=== PATIENT | male | born 2000 ===

== ENCOUNTER → 2023-08-07 | Outpatient (CLI) | LOC: M SOG 08:00 | PROVIDERS: ATTEND Physician Assistant | DX: S62.631A Displaced fracture of distal phalanx of left index finger, initial encounter for closed fracture (principal) ==

== ENCOUNTER → 2023-08-23 | Outpatient (CLI) | payer OTHER | LOC: M SOG 07:59 | PROVIDERS: ATTEND Physician Assistant | DX: S62.631A Displaced fracture of distal phalanx of left index finger, initial encounter for closed fracture (principal); W18.30XA Fall on same level, unspecified, initial encounter; Y92.009 Unspecified place in unspecified non-institutional (private) residence as the place of occurrence of the external cause ==